=== PATIENT | female | born 1970 | race Caucasian/White ===

== ENCOUNTER 2021-03-17 17:03 | Inpatient (IN) | payer OTHER ==
[~2021-03-17] VITALS: Ht 157.5 cm; Wt 70.5 kg
[2021-03-17] MEDS ORDERED: LORazepam 1 MG TABLET PO ONE (18:00)
[2021-03-17 18:21] LABS: BASOPHILS % (AUTO) 0.3 % (0.0-2.0); EOSINOPHILS % (AUTO) 1.4 % (1.0-6.0); HEMATOCRIT 38.3 % (36-46); HEMOGLOBIN 12.7 g/dL (12.0-16.0); LYMPHOCYTES # (AUTO) 1.8 K/uL (1.0-4.8); LYMPHOCYTES % (AUTO) 46.6 % (22.0-44.0); MEAN CORPUSCULAR HEMOGLOBIN 31.3 pg (26.0-34.0); MEAN CORPUSCULAR HGB CONC 33.2 G/dL (31.0-37.0); MEAN CORPUSCULAR VOLUME 94 fL (80-100); MONOCYTES # (AUTO) 0.2 K/uL (0.1-1.0); MONOCYTES % (AUTO) 6.3 % (2.0-9.0); NEUTROPHILS # (AUTO) 1.8 K/uL (1.8-7.7); NEUTROPHILS % (AUTO) 45.4 % (40.0-70.0); PLATELET COUNT (AUTO) 177 K/uL (150-450); RED BLOOD CELL COUNT(AUTO) 4.07 MIL/uL (4.00-5.20)
[2021-03-17 18:34] LABS: ANION GAP 8 mmol/L (8-16); CALCIUM, TOTAL 8.6 mg/dL (8.8-10.5); CARBON DIOXIDE 29 mmol/L (22-29); CHLORIDE 105 mmol/L (98-107); CREATININE 0.75 mg/dL (0.60-1.30); GLOMERULAR FILTR. RATE CALC > 60 mL/min (>60); GLUCOSE,RANDOM 97 mg/dL (70-110); POTASSIUM 3.8 mmol/L (3.5-5.1); SODIUM SERUM 142 mmol/L (136-145); UREA NITROGEN, BLOOD 19 mg/dL (7-18)
[2021-03-17 18:40] LABS: ALANINE AMINOTRANSFERASE 20 U/L (12-78); ALBUMIN 3.3 g/dL (3.4-5.0); ALKALINE PHOSPHATASE 74 U/L (46-116); ASPARTATE AMINOTRANSFERASE 19 U/L (15-37); BILIRUBIN,TOTAL 0.3 mg/dL (0.1-1.0); TOTAL PROTEIN, SERUM 6.8 g/dL (6.4-8.2)
[2021-03-17 18:46] LABS: COVID AG,FIA SOURCE NASOPHARYNGEAL
[2021-03-17] MEDS ORDERED: ACETAMINOPHEN 325 MG TABLET PO PRN (19:15)
[2021-03-17 23:50] VITALS: BP 105/66
[2021-03-18 04:42] VITALS: BP 109/67
[2021-03-18 08:01] VITALS: BP 104/67
[2021-03-18] MEDS: SERTRALINE HCL 50 MG TABLET PO SCH (11:40)
[2021-03-18 14:35] LABS: AMPHET/METH SCREEN,URINE POSITIVE (NEGATIVE); BARBITURATE SCREEN, URINE NEGATIVE (NEGATIVE); BENZODIAZEPINES SCREEN,URINE NEGATIVE (NEGATIVE); CANNABINOID SCREEN,URINE NEGATIVE (NEGATIVE); COCAINE SCREEN,URINE NEGATIVE (NEGATIVE); METHADONE SCREEN, URINE NEGATIVE (NEGATIVE); OPIATE SCREEN,URINE NEGATIVE (NEGATIVE); PHENCYCLIDINE SCREEN,URINE NEGATIVE (NEGATIVE)
[2021-03-18 19:23] VITALS: BP 99/58
[2021-03-18] MEDS: TraZODone HCL 50 MG TABLET PO SCH (20:15)
[2021-03-19 03:54] VITALS: BP 98/57
[2021-03-19 08:02] VITALS: BP 109/63
[2021-03-19] MEDS: SERTRALINE HCL 50 MG TABLET PO SCH (08:32)
[2021-03-19 12:21] VITALS: BP 101/64
[2021-03-19 19:20] VITALS: BP 123/72
[2021-03-19] MEDS: TraZODone HCL 50 MG TABLET PO SCH (19:52)
[2021-03-20 04:33] VITALS: BP 101/60
[2021-03-20 08:09] VITALS: BP 111/58
[2021-03-20] MEDS: SERTRALINE HCL 50 MG TABLET PO SCH (08:39)
[2021-03-20] MEDS ORDERED: SERT-158 PO (15:11)
[2021-03-20] MEDS ORDERED: TRAZ-252 PO (15:12)
[2021-03-20] MEDS: TraZODone HCL 50 MG TABLET PO SCH (19:48)
[2021-03-20 19:59] VITALS: BP 119/70
[2021-03-21 05:16] VITALS: BP 115/60
[2021-03-21 08:04] VITALS: BP 100/51
[2021-03-21] MEDS: SERTRALINE HCL 50 MG TABLET PO SCH (08:13)
== END 2021-03-21 09:00 | DRG 885 ==
LOC: EMS 17:05 → 6S 22:00
PROVIDERS: ADMIT Psychiatry & Neurology Child & Adolescent Psychiatry; ATTEND Psychiatry & Neurology Child & Adolescent Psychiatry
DX: F33.2 Major depressive disorder, recurrent severe without psychotic features (principal); R45.851 Suicidal ideations; Z20.822 Contact with and (suspected) exposure to COVID-19; G47.00 Insomnia, unspecified; F15.10 Other stimulant abuse, uncomplicated; F41.9 Anxiety disorder, unspecified; Z88.0 Allergy status to penicillin
CPT/HCPCS: 80053; 85025; 99285; G0480